=== PATIENT | male | born 1960 | race Caucasian/White ===

== ENCOUNTER → 2017-06-25 | Day surgery (SDC) | payer OTHER ==
[~2017-06-25] MED LIST: ATORVASTATIN CA40 MG PO; FENTANYL CITRATE/PF 100MCG/2 ML INJ ONE; HYOSCYAMINE SULFATE 0.5 MG/ML AMP ONE; LIDOCAINE HCL 2% LOCAL INJ 5 ML SDV VIAL INJ ONE; MIDAZOLAM HCL 2 MG/2 ML VIAL ONE; PROPOFOL IV EMULSION 10 MG/ML 50 ML VIAL ONE
--- NOTE | 2017-06-25 09:40 | Operative Report ---
DATE OF PROCEDURE: June 25, 2017 REFERRING PHYSICIAN: Dr. Joana Johnson PROCEDURE PERFORMED: Colonoscopy and polypectomy. INDICATIONS FOR COLONOSCOPY: Colorectal cancer screening. MEDICATION: Patient was done under MAC. Please see anesthesiologist's note. PROCEDURE: With the patient in the left lateral decubitus position, the flexible fiberoptic Olympus colonoscope was inserted into the rectum with ease and advanced all the way to the cecum. The scope was then withdrawn slowly. A minute polyp was hot biopsied from the cecum. One polyp was snared from the ascending colon. The transverse and descending grossly appeared to be within normal limits. Some minimal diverticulosis was noted in the sigmoid colon. Three polyps were snared and two polyps were hot biopsied from the sigmoid colon. Seven polyps were hot biopsied from the rectum. The scope was then retroflexed into the distal rectum and small internal hemorrhoids were noted, none of which was actively bleeding. The scope was then straightened out. It was subsequently withdrawn. Patient tolerated the procedure well. IMPRESSION 1. Cecal polyp, hot biopsied. 2. Ascending colon polyps, snared. 3. Diverticulosis, minimal. 4. Sigmoid colon polyps times 5, 3 snared and 2 were hot biopsied. 5. Rectal polyps times 7, hot biopsied. 6. Internal hemorrhoids, none actively bleeding. A total of 14 polyps were removed. PLAN: Follow up histology. Initiate high-fiber and low-fat diet. Initiate high-fiber supplement. Patient will need a followup colonoscopy in 1-2 years. Job#: [id number] RI cc: JOANA ELI MD
== END | disposition home or self-care (01) ==
LOC: OR 06:00
PROVIDERS: ATTEND Internal Medicine Gastroenterology
DX: Z12.11 Encounter for screening for malignant neoplasm of colon (principal); D12.2 Benign neoplasm of ascending colon; D12.5 Benign neoplasm of sigmoid colon; K62.1 Rectal polyp; K57.30 Diverticulosis of large intestine without perforation or abscess without bleeding; K64.8 Other hemorrhoids; R00.1 Bradycardia, unspecified; R03.0 Elevated blood-pressure reading, without diagnosis of hypertension; Z01.810 Encounter for preprocedural cardiovascular examination; Z68.30 Body mass index [BMI] 30.0-30.9, adult
CPT/HCPCS: 45385; 93005; J1980; J2001; J2250

== ENCOUNTER → 2019-02-23 | Day surgery (SDC) | payer OTHER ==
[~2019-02-23] MED LIST changes: +CYCLOBENZAPRINE10 MG PO; +HYOSCYAMINE 0.125 MG TAB ONE; -HYOSCYAMINE SULFATE 0.5 MG/ML AMP ONE; -LIDOCAINE HCL 2% LOCAL INJ 5 ML SDV VIAL INJ ONE; +MELOXICAM7.5 MG PO; -MIDAZOLAM HCL 2 MG/2 ML VIAL ONE; +MIDAZOLAM HCL 5MG/ML 2ML VIAL ONE; +PANTOPRAZOLE SO40 MG PO; +ULTRAM50 MG PO
--- OUTSIDE RECORDS SUMMARY | 2019-02-23 12:31 | XMS REPORT | Encounter Summary ---
Author Organization Unknown Address [address] [place] [address] Phone [phone] Care Team Providers Care Wind Energy Mechanic Name Role Phone Dr. Valencia Aragon 3 [phone] Ramiro Javed MD 3 [phone] Gumaro Moses MD 107 [phone] Reason for Visit other - see typed reason Instructions 1. Lumbago with sciatica tramadol 50 mg tablet cyclobenzaprine 10 mg tablet meloxicam 15 mg tablet 2. Right upper quadrant pain gastroenterology referral - *Please call the patient and make an appointment* PLEASE SEND BACK CONSULT NOTES TO [phone] 3. 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 Influenza vaccination declined Discussion Note: None recorded. Patient educational handouts: No information available. Plan of Care Reminders Provider Appointments Est Patient 02/21/2019 11:15AM Ramiro Collazo MD Return to Office on or around 02/21/2019 Ramiro Collazo MD Lab None recorded. Referral Gastroenterology Referral 02/07/2019 Gumaro Moses MD Procedures None recorded. Surgeries None recorded. Imaging None recorded. Medications Name Start Date atorvastatin 40 mg tablet TAKE 1 TABLET BY MOUTH EVERY DAY IN THE MORNING cyclobenzaprine 10 mg tablet Take 1 tablet as needed by oral route at bedtime for 30 days. meloxicam 15 mg tablet TAKE 1 TABLET BY MOUTH EVERY DAY NEEDED pantoprazole 40 mg tablet,delayed release TAKE 1 TABLET BY MOUTH EVERY DAY FOR 14 DAYS DIRECTED tramadol 50 mg tablet Take 1 tablet twice a day by oral route as needed for 10 days. Medications Administered None recorded. Vitals Height Weight BMI Blood Pressure 5 ft 8 in 210 lbs 31.9 kg/m2 128/74 mm[Hg] Results Lab Results Date Name Specimen Result Interpretation Description Value Range Status Address 01/31/2019 Urinalysis Complete, Reflex Culture Normal Color yellow yellow Final [facility]: [address] [facility], [place] Normal Appearance clear clear Final [facility]: [address], [place] Normal Specific Cameron 1.004 1.001-1.035 Final [facility]: [address] [facility], [place] Normal Ph 7.0 5.0-8.0 Final [facility]: [address] [facility], [place] Normal Glucose negative negative Final [facility]: [address] [facility], [place] Normal Bilirubin negative negative Final [facility]: [address] [facility], [place] Normal Ketones negative negative Final [facility]: [address] [facility], [place] Normal Occult Blood negative negative Final [facility]: [address] [facility], [place] Normal Protein negative negative Final [facility]: [address] [facility], [place] Normal Nitrite negative negative Final [facility]: [address] Normal Leukocyte Esterase negative negative Final [facility]: [address] Normal Wbc none seen /hpf < or=5 /hpf Final [facility]: [address] Normal Rbc none seen /hpf < or=2 /hpf Final [facility]: [address] Normal Squamous Epithelial Cells none seen /hpf < or=5 /hpf Final [facility]: [address] Normal Bacteria none seen /hpf none seen /hpf Final [facility]: [address] Normal Hyaline Cast none seen /lpf none seen /lpf Final [facility]: [address] [place] [address], [place] Reflexive Urine Culture no culture indicated Final [facility] [address] [facility] [facility] H Pylori Urea Breath Test, Co2 Infrared Normal Helicobacter Pylori, Urea Breath Test not detected not detected Final [facility]: [address] [place] [address], [place] Urinalysis, Dipstick Color Color light yellow [facility]: [address] [place] Color Appearance clear [facility]: [address] [place] Color Glucose negative [facility]: [address] [place] Color Bilirubin negative [facility]: [address] [place] Color Ketones negative [facility]: [address] [place] Color Specific Cameron 1.015 [facility]: [address] [place] Color Blood trace [facility]: [address] [place] Color PH 7.0 [facility]: [address] [place] Color Protein negative [facility]: [address] [place] Color Urobilinogen 0.2 [facility]: [address] [place] Color Nitrites negative [facility]: [address] [place] Color Leukocytes negative [facility]: [address] [place] Allergies Code Code System Name Reaction Severity Status Onset 838128 RxNorm Zocor Nausea Active NKDA Problems Name Status Onset Date Source Hyperlipidemia Active 09/14/2016 Polyp of Colon Active 05/31/2018 Procedures Date Name Performed by Colonoscopy Information not available 01/31/2019 US, Abdomen [facility] [place] [address] [place] [address] (Work Place) Vaccine List Vaccine Type Tdap 05/02/2014 zoster subunit 01/31/2019 Social History Tobacco Smoking Status Heavy Tobacco Smoker (1 PPD) Past Encounters 02/07/2019 Lumbago with Sciatica; Right Upper Quadrant Pain; Nonulcer Dyspepsia; Influenza Vaccination Declined Ramiro Collazo MD: [address] [place] [phone], Ph. 01/31/2019 Lumbago with Sciatica; Right Upper Quadrant Pain; Nonulcer Dyspepsia; Hyperlipidemia; Acute Low Back Pain; Immunization; Influenza Vaccination Declined; Microscopic Hematuria; Body Mass Index 30+ - Obesity Ramiro Collazo MD: [address] [place] [address], Ph. History of Present Illness Note:<div>F/u on back and abdominal pain. Pt completed medrol dose keron. Pain has improved. Intensity: 4/10. </div><div>Still complaining of bloating worse after eating and constipation. Denies nausea or melena.</div> Review of Systems:ROS as noted in the HPI Review of Systems None recorded. Physical Exam General Adult Exam (male) Reported By: Patient Constitutional: General Appearance: healthy-appearing, obese. Level of Distress: mild distress. Ambulation: ambulating normally Eyes: Lids and Conjunctivae: non-injected, no discharge Neck: Neck: supple, trachea midline Lungs: Auscultation: breath sounds normal Cardiovascular: Heart Auscultation: RRR, normal S1, normal S2, no murmurs Abdomen: Inspection and Palpation: soft, non-distended, no guarding, no rebound tenderness, no masses, no CVA tenderness, RUQ tenderness, RLQ tenderness. Liver: non-tender, no hepatomegaly. Spleen: non-tender, no splenomegaly Musculoskeletal:: Motor Strength and Tone: normal, normal tone. Joints, Bones, and Muscles: normal movement of all extremities. Extremities: no edema Neurologic: Gait and Station: normal gait. Sensation: grossly intact. Reflexes: DTRs 2+ bilaterally throughout Skin: Inspection and palpation: no rash, no lesions Back: Thoracolumbar Appearance: ; tenderness with palpation in the R side of the thoracic back and lumbar area. Positive straight leg raising test in the R side
--- OUTSIDE RECORDS SUMMARY | 2019-02-23 12:31 | XMS REPORT | Encounter Summary ---
Author Organization Unknown Address [address] [place] [address] Phone [phone] Care Team Providers Care Caul Dresser Name Role Phone Dr. Valencia Aragon 3 [phone] Ramiro Javed MD 3 [phone] Gumaro Moses MD 107 [phone] Reason for Visit Hyperlipidemia; low back pain Instructions 1. Lumbago with sciatica ketorolac 60 mg/2 mL intramuscular syringe Medrol (Darrick) 4 mg tablets in a dose pack cyclobenzaprine 10 mg tablet 2. Right upper quadrant pain US, abdomen - *Please call the patient and schedule* tramadol 50 mg tablet 3. Nonulcer dyspepsia H pylori urea breath test, co2 infrared 4. Hyperlipidemia high cholesterol: care instructions atorvastatin 40 mg tablet 5. Acute low back pain urinalysis, dipstick 6. Immunization Shingrix Adjuvant Component (PF) intramuscular suspension 7. Influenza vaccination declined 8. Microscopic hematuria urinalysis complete, reflex culture 9. Body mass index 30+ - obesity body mass index: care instructions learning about healthy weight Discussion Note: None recorded. Plan of Care Reminders Provider Appointments Est Patient 02/07/2019 10:15AM Ramiro Collazo MD Lab Urinalysis, Dipstick 01/31/2019 [facility] Urinalysis Complete, Reflex Culture 01/31/2019 [facility] H Pylori Urea Breath Test, Co2 Infrared 01/31/2019 [facility] Referral None recorded. Procedures None recorded. Surgeries None recorded. Imaging US, Abdomen 01/31/2019 [facility] [place] Medications Name Start Date atorvastatin 40 mg tablet TAKE 1 TABLET BY MOUTH EVERY DAY IN THE MORNING cyclobenzaprine 10 mg tablet Take 1 tablet as needed by oral route at bedtime for 14 days. ketorolac 60 mg/2 mL intramuscular syringe Inject 60 mg by intramuscular route. Medrol (Darrick) 4 mg tablets in a dose pack Take 1 dose pk by oral route as directed. tramadol 50 mg tablet Take 1 tablet every day by oral route as needed for 10 days. Medications Administered Name Date ketorolac 60 mg/2 mL intramuscular syringe Inject 60 mg by intramuscular route. [id number]:15:00 Vitals Height Weight BMI Blood Pressure 5 ft 8 in 212.8 lbs 32.4 kg/m2 130/76 mm[Hg] Results Lab Results Date Name Specimen Result Interpretation Description Value Range Status Address Urinalysis, Dipstick Color Color light yellow [facility]: [address] [place] Color Appearance clear [facility]: [address] [place] Color Glucose negative [facility]: [address] [place] Color Bilirubin negative [facility]: [address] [place] Color Ketones negative [facility]: [address] [place] Color Specific [place] 1.015 [facility]: [address] [place] Color Blood trace [facility]: [address] [place] Color PH 7.0 [facility]: [address] [place] Color Protein negative [facility]: [address] [place] Color Urobilinogen 0.2 [facility]: [address] [place] Color Nitrites negative [facility]: [address] [place] Color Leukocytes negative [facility]: [address] [place] Allergies Code Code System Name Reaction Severity Status Onset RxNorm Zocor Nausea Active NKDA Problems Name Status Onset Date Source Hyperlipidemia Active 09/14/2016 Polyp of Colon Active 05/31/2018 Procedures Date Name Performed by Colonoscopy Information not available 01/31/2019 US, Abdomen [facility] [place] [address] [place] [address] (Work [address]) Vaccine List Vaccine Type Tdap 05/02/2014 zoster subunit 01/31/2019 Social History Tobacco Smoking Status Heavy Tobacco Smoker (1 PPD) Past Encounters 01/31/2019 Lumbago with Sciatica; Right Upper Quadrant Pain; Nonulcer Dyspepsia; Hyperlipidemia; Acute Low Back Pain; Immunization; Influenza Vaccination Declined; Microscopic Hematuria; Body Mass Index 30+ - Obesity Ramiro Collazo MD: [address] [place] [address], Ph. History of Present Illness Note:Pt presents with complaints of low back pain. Pain started last tuesday. Pain radiates to the right leg. Intensity: 8/10. Pt denies any numbness or tingling. Pt describes the pain as achying and sharp, he states that he has difficulty putting on socks and bending, standing eases the pain a little. Pt states that he has tried otc ibuprofen but has not gotten any relief. Pt also complains of RUQ and RLQ pain. Concomitantly, bloating, worse after eating, nausea and heartburn. Denies melena, constipation, diarrhea, dysuria, hematuria or fever. Review of Systems:ROS as noted in the HPI Review of Systems None recorded. Physical Exam General Adult Exam (male) Reported By: Patient Constitutional: General Appearance: healthy-appearing, obese. Level of Distress: moderate distress. Ambulation: ambulating normally Eyes: Lids and [...]
--- OUTSIDE RECORDS SUMMARY | 2019-02-23 12:31 | XMS REPORT | Encounter Summary ---
Author Organization Unknown Address [address] [place] [address] Phone [phone] Care Team Providers Care Radiosonde Operator Name Role Phone Dr. Valencia Aragon 3 [phone] Ramiro Javed MD 3 [phone] Reason for Visit Hyperlipidemia; skin problem/rash Instructions 1. Hyperlipidemia atorvastatin 40 mg tablet lipid panel, serum CMP, serum or plasma 2. Body mass index 30+ - obesity body mass index: care instructions learning about healthy weight 3. Immunization 4. Pruritic rash triamcinolone acetonide 0.5 % topical cream 5. Skin disease screening dermatology referral 6. Polyp of colon gastroenterology referral - Please schedule & contact our patient./FX RESULTS TO [phone] Thank you. Discussion Note: None recorded. Plan of Care Reminders Provider Appointments Est Patient 08/25/2018 1:30PM Valencia Aragon MD Lab Lipid Panel, Serum 05/30/2018 [facility] CMP, Serum or Plasma 05/30/2018 [facility] Referral Dermatology Referral 05/30/2018 Hammad Hector MD Gastroenterology Referral 05/30/2018 Gumaro Moses MD Procedures None recorded. Surgeries None recorded. Imaging None recorded. Medications Name Start Date atorvastatin 40 mg tablet Take 1 tablet every day by oral route in the morning for 90 days. triamcinolone acetonide 0.5 % topical cream APPLY A THIN LAYER TO THE AFFECTED AREA(S) BY TOPICAL ROUTE 2 TIMES PER DAY Medications Administered None recorded. Vitals Height Weight BMI Blood Pressure 5 ft 8 in 215.4 lbs 32.8 kg/m2 124/80 mm[Hg] Lab Results None recorded. Allergies Code Code System Name Reaction Severity Status Onset RxNorm Zocor Nausea Active NKDA Problems Name Status Onset Date Source Hyperlipidemia Active 09/14/2016 Polyp of Colon Active 05/31/2018 Procedures Date Name Performed by 06/25/2017 Colonoscopy Information not available Vaccine List Vaccine Type Tdap 05/02/2014 Social History Smoking Status Heavy Tobacco Smoker (1 PPD) Past Encounters 05/30/2018 Hyperlipidemia; Body Mass Index 30+ - Obesity; Immunization; Pruritic Rash; Skin Disease Screening; Polyp of Colon Valencia Aragon MD: [address] [place] [address], Ph. History of Present Illness Note:58yo male presents for follow-up visit. Last visit 12/06/17. Here today for medication refill & evaluation of rash.<div>Hx of hyperlipidemia for past 6- 7yrs, dx'd by Dr Cazares. Currently on atorvastatin 40mg qd. Last lipid panel on 12/06/17 with TC 357, LDL 267, HDL 44, TG 230, AST 40, ALT 84.</div><div><span style="font-size: 14px;">Has been taking atorvastatin regularly since that visit for past </span>3mo<span style="font-size: 14px;">.</span>
</div><div><span style="font-size: 14px;">
</span></div><div>Here today for evaluation of skin rash for the past week. Itchy & scaly patches on trunk R>L, both arms & amp; both legs. Both father & paternal GF had shingles. Pt had chicken pox as child. Would like Shingrex (currently unavailable in our office).</div><div>< br></div><div>Last colonoscopy 06/25/17 at [facility] Dr Moses. Recommended repeat in 1 yr. due to polyps. Reviewed with pt.</div> Review of Systems:ROS as noted in the HPI Review of Systems Comprehensive General Adult ROS Reported By: Patient Constitutional: Constitutional: no fever Eyes: Eyes: no vision change Cardiovascular: Cardiovascular: no chest pain Respiratory: Respiratory: no cough, no wheezing, no shortness of breath Gastrointestinal: Gastrointestinal: no abdominal pain Integumentary: Skin: rash, itching, dry skin Neurologic: Neurologic: no loss of consciousness, no headaches Psychiatric: Psych: no depression, no alcohol abuse, no anxiety, no suicidal thoughts Physical Exam General Adult Exam (male) Reported By: Patient Constitutional: General Appearance: healthy-appearing, obese. Level of Distress: NAD. Ambulation: ambulating normally Psychiatric: Insight: good judgement. Mental Status: active and alert, normal mood, normal affect. Orientation: to time, to place, to person. Memory: recent memory normal, remote memory normal Eyes: Lids and Conjunctivae: non-injected, no discharge. Pupils: PERRLA. EOM: EOMI. Sclerae: non-icteric ENMT: Ears: TMs clear. Hearing: no hearing loss. Nose: nares patent, no nasal discharge. Lips, Teeth, and Gums: no mouth or lip ulcers; Enlarged taste buds. Oropharynx: moist mucous membranes Neck: Neck: supple, trachea midline. Thyroid: no enlargement, non-tender Lungs: Respiratory effort: no dyspnea. Auscultation: breath sounds normal, good air movement, no wheezing, no rales/crackles Cardiovascular: Heart Auscultation: RRR, normal S1, normal S2, no murmurs. Neck vessels: no carotid bruits. Pulses including femoral / pedal: normal throughout Abdomen: Bowel Sounds: normal. Inspection and Palpation: soft, non-distended, no tenderness, no guarding Musculoskeletal:: Motor Strength and Tone: normal, normal tone. Extremities: no edema Neurologic: Gait and Station: normal gait Skin: Inspection and palpation: no ulcer, no induration, no nodules, good turgor, no jaundice, rash, lesion, tattoo; see photos below of arms & legs. Nonspecific patches with fine scale. No vesicles
--- OUTSIDE RECORDS SUMMARY | 2019-02-23 12:31 | XMS REPORT | Encounter Summary ---
Author Organization Unknown Address [address] [place] [address] Phone [phone] Care Team Providers Care Merchandising Director Name Role Phone Dr. Valencia Aragon 3 [phone] Ramiro Javed MD 3 [phone] Gumaro Moses MD 107 [phone] Reason for Visit Hyperlipidemia; low back pain [...] Reminders Provider Appointments Est Patient 02/07/2019 10:15AM Ramrio Collazo MD Lab Urinalysis, Dipstick 01/31/2019 [facility] Urinalysis Complete, Reflex Culture 01/31/2019 [facility] H Pylori Urea Breath Test, Co2 Infrared 01/31/2019 [facility] Referral None recorded. Procedures None recorded. Surgeries None recorded. Imaging US, Abdomen 01/31/2019 [facility] [place] Medications Name Start Date atorvastatin 40 mg [...] syringe Inject 60 mg by intramuscular route. [id number]:15:00 Vitals Height Weight BMI Blood Pressure 5 ft 8 in 212.8 lbs 32.4 kg/m2 130/76 mm[Hg] Results Lab Results Date Name Specimen Result Interpretation Description Value Range Status Address Urinalysis, Dipstick Color Color light yellow [facility]: [address] [place] Color Appearance clear [facility]: [address] [place] Color Glucose negative [facility]: [address] [place] Color Bilirubin negative [facility] [address] [place] Color Ketones negative [facility]: [address] [place] Color Specific Theresa 1.015 [facility]: [address] [place] Color Blood trace [facility]: [address] [place] Color PH 7.0 [facility]: [address] [place] Color Protein negative [facility]: [address] [place] Color Urobilinogen 0.2 [facility]: [address] [place] Color Nitrites negative [facility]: [address] [place] Color Leukocytes negative [facility]: [address] [place] Allergies Code Code System Name Reaction Severity Status Onset RxNorm Zocor Nausea Active NKDA Problems Name Status Onset Date Source Hyperlipidemia Active 09/14/2016 Polyp of Colon Active 05/31/2018 Procedures Date Name Performed by Colonoscopy Information not available 01/31/2019 US, Abdomen [facility] [place] [address] [place] [address] (Work [address]) Vaccine List Vaccine Type Tdap 05/02/2014 zoster subunit 01/31/2019 Social History Tobacco Smoking Status Heavy Tobacco Smoker (1 PPD) Past Encounters 01/31/2019 Lumbago with Sciatica; Right Upper Quadrant Pain; Nonulcer Dyspepsia; Hyperlipidemia; Acute Low Back Pain; Immunization; Influenza Vaccination Declined; Microscopic Hematuria; Body Mass Index 30+ - Obesity Ramiro Collazo MD: [address] [place] [address], Ph. History of Present Illness Note:Pt presents [...]
[2019-02-23 17:15] VITALS: BP 115/81
--- NOTE | 2019-02-23 19:50 | Operative Report ---
DATE OF PROCEDURE: 02/23/2019 SURGEON: Gumaro Moses MD PROCEDURES PERFORMED: Esophagogastroduodenoscopy with biopsy and a colonoscopy with polypectomy. INDICATIONS FOR EGD: Upper abdominal pain. INDICATIONS FOR COLONOSCOPY: Surveillance colonoscopy, history of numerous colon polyps. MEDICATIONS: The patient was done under MAC. Please see anesthesiologist's note. PROCEDURE IN DETAIL: With the patient in left lateral decubitus position, flexible fiberoptic Olympus gastroscope was introduced into the esophagus under direct visualization without any difficulty. There was some patchy erythema noted in distal esophagus. The scope was then advanced with ease into the stomach. Mucosa overlying the antrum revealed some patchy erythema and low-grade to moderate edema, and biopsies were obtained, and sent to stain for H pylori. There was some prominent nodularity noted in the proximal body along the anterior wall and biopsies were obtained. The pylorus was of normal contour and shape, it was intubated with ease. The scope was advanced all the way to the second portion of the duodenum. Biopsies were obtained from the proximal second portion and duodenal bulb to rule out sprue. The scope was then withdrawn back into the stomach and retroflexed. Mucosa overlying the fundus and cardia appeared to be within normal limits. The scope was then straightened out. The stomach was decompressed. The scope was subsequently withdrawn. The patient tolerated the procedure well. IMPRESSION: 1. Distal esophagitis. 2. Gastritis, biopsied, biopsies sent to stain for Helicobacter pylori. 3. Rule out sprue. PLAN: Follow up histology. Increase Protonix to 40 mg one p.o. before meals b.i.d. The patient was then turned around after adequate lubrication of the anal canal. Flexible fiberoptic Olympus colonoscope was inserted into the rectum with ease and advanced all the way to the cecum. It was then withdrawn slowly. Mucosa overlying the cecum, ascending, transverse, and descending appeared to be within normal limits. Some diverticular disease was noted in the sigmoid colon. One polyp was hot biopsied from the sigmoid. An additional polyp was hot biopsied from the rectum. The scope was then retroflexed into the distal rectum and small internal hemorrhoids were noted, none of which was actively bleeding. The scope was then straightened out. It was subsequently withdrawn. The patient tolerated the procedure well. IMPRESSION: 1. Sigmoid colon polyp, hot biopsied. 2. Diverticulosis. 3. Rectal polyp, hot biopsied. 4. Internal hemorrhoids, none actively bleeding. PLAN: Follow up histology. Initiate high-fiber, low-fat diet. Initiate high-fiber supplement. The patient might benefit from a followup colonoscopy in 3 years. Gumaro Moses MD [facility] [place]/[facility] /[id number] cc: Amari Johnson MD
== END | disposition home or self-care (01) ==
LOC: OR 12:29
PROVIDERS: ATTEND Internal Medicine Gastroenterology
DX: K29.70 Gastritis, unspecified, without bleeding (principal); K63.5 Polyp of colon; K62.1 Rectal polyp; K20.9 Esophagitis, unspecified; K57.30 Diverticulosis of large intestine without perforation or abscess without bleeding; K64.8 Other hemorrhoids; K59.09 Other constipation; E78.00 Pure hypercholesterolemia, unspecified; R03.0 Elevated blood-pressure reading, without diagnosis of hypertension; F17.210 Nicotine dependence, cigarettes, uncomplicated; Z01.810 Encounter for preprocedural cardiovascular examination; Z68.29 Body mass index [BMI] 29.0-29.9, adult
CPT/HCPCS: 43239; 45384; 93005; J2250; J2704; J3010

== ENCOUNTER → 2020-01-22 | Day surgery (SDC) | payer OTHER ==
[2020-01-17 15:44] LABS: BASOPHILS # (AUTO) 0.1 (0.0-0.1); BASOPHILS % 0.9 % (0.0-1.0); EOSINOPHILS # (AUTO) 0.1 (0.0-0.4); HEMATOCRIT 45.3 % (38.2-49.6); HEMOGLOBIN 15.6 g/dL (14.0-18.0); LYMPHOCYTES # (AUTO) 1.6 (1.0-3.2); LYMPHOCYTES % 29.2 % (18.0-39.1); MEAN CORPUSCULAR HEMOGLOBIN 33.3 pg (28-32); MEAN CORPUSCULAR HGB CONC 34.4 g/dL (31-35); MEAN CORPUSCULAR VOLUME 96.6 fL (81-99); MONOCYTES # (AUTO) 0.4 (0.2-0.8); MONOCYTES % 7.4 % (4.4-11.3); NEUTROPHILS # (AUTO) 3.3 (2.1-6.9); NEUTROPHILS % 60.1 % (38.7-80.0); PLATELET COUNT 163 x10e3/uL (140-360); RED BLOOD COUNT 4.69 x10e6/uL (4.3-5.7); RED CELL DISTRIBUTION WIDTH 12.8 % (11.7-14.4)
--- NOTE | 2020-01-17 16:27 | Diagnostic Imaging Report ---
EXAMINATION: CHEST 2 VIEWS INDICATION: Pre-operative COMPARISON: None FINDINGS: LINES/TUBES:None LUNGS:The lungs are well-inflated. No focal consolidation or pulmonary edema. PLEURA:No pleural effusion or pneumothorax. MEDIASTINUM:The cardiomediastinal silhouette appears normal in size and shape. BONES/SOFT TISSUES:No acute osseous injury. ABDOMEN:No free air under the diaphragm. IMPRESSION: No focal pneumonia or pulmonary edema. Signed by: Nadege Boggs MD on 01/17/2020 4:24 PM
[~2020-01-22] MED LIST changes: +ACETAMINOPHEN/CODEINE 300MG - 30MG TAB ONE; +BUPIVACAINE HCL 0.5% INJ 30 ML VIAL INJ ONE; +CEFAZOLIN SOD 1 GM/NS 50ML 100 ML IV ONE; +DEXAMETHASONE SOD PHOS INJ 4 MG/ML VIAL ONE; +GLYCOPYRROLATE INJ 0.2 MG/ML VIAL ONE; +HYDROMORPHONE 1MG/1ML INJ ONE; -HYOSCYAMINE 0.125 MG TAB ONE; +KETOROLAC TROMETHAMINE 30 MG/ML VIAL ONE; +LIDOCAINE HCL 2% LOCAL INJ 5 ML SDV VIAL INJ ONE; +MIDAZOLAM HCL 2 MG/2 ML VIAL ONE; -MIDAZOLAM HCL 5MG/ML 2ML VIAL ONE; +NEOSTIGMINE 1 MG/ML 10ML VIAL ONE; +OMEPRAZOLE20 M1 PO; +ONDANSETRON HCL INJ 2MG/ML 2ML 2 MG/ML VIAL ONE; +PROPOFOL IV EMULSION 10 MG/ML 20 ML VIAL ONE; -PROPOFOL IV EMULSION 10 MG/ML 50 ML VIAL ONE; +ROCURONIUM BROMIDE 10 MG/ML 5ML VIAL IV ONE; +SEVOFLURANE INHAL SOLN 250 ML PEN BTL ONE; +SUGAMMADEX SODIUM 200 MG/2 ML VIAL IV ONE
[2020-01-22 12:35] VITALS: BP 134/79
--- NOTE | 2020-01-22 14:59 | Operative Report ---
DATE OF PROCEDURE: 01/22/2020 SURGEON: Aubrey Barron MD PREOPERATIVE DIAGNOSES: 1. Abdominal pain. 2. Incarcerated umbilical hernia. POSTOPERATIVE DIAGNOSES: 1. Abdominal pain. 2. Incarcerated umbilical hernia. PROCEDURES: 1. Diagnostic laparoscopy. 2. Repair of incarcerated umbilical hernia. 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 ANESTHESIA: General. INDICATIONS AND FINDINGS: The patient is a 59-year-old male, who presents with complaints of pain in his umbilicus as well as right lower abdomen. At Surgery, the patient was found to have no abnormalities seen with laparoscopy. The appendix appeared normal. Cecum appeared normal. Liver, gallbladder, and small bowel all appeared normal. There was no free fluid. There was an incarcerated umbilical hernia containing chronically incarcerated omentum with a fascial defect that was approximately 4 mm. TECHNIQUE: After adequate general endotracheal anesthesia, the patient in supine position, the abdomen was prepped and draped in a sterile fashion with ChloraPrep solution. A transverse incision was made inferior to the umbilicus and carried down through the subcutaneous tissue. The umbilicus was dissected free of the herniated mass. The herniated mass was then dissected free down to the fascia and freed from the fascia throughout circumference of hernia defect, which was about 4 mm. The herniated mass was about 1.5 cm containing incarcerated omentum. Once the hernia was freed from the fascia, it was then reduced beneath the fascia. A 5 mm trocar and cannula was passed through the hernia defect and pneumoperitoneum was created. Laparoscopic camera was introduced and then second 5 mm trocar and cannula were placed in the suprapubic area under direct vision. Laparoscopy revealed no free fluid. The bowel was examined. The small bowel all appeared normal with no inflammatory changes. No enlarged lymph nodes. Appendix appeared normal. Cecum appeared normal as to the right colon. Liver and gallbladder appeared normal. Instruments and cannulas were then removed, and pneumoperitoneum was evacuated. The umbilical hernia was then repaired closing the fascial defect transversely with a running suture of 0 Prolene. Hemostasis of the wound was seen to be adequate. The wound was then infiltrated with 0.5% Marcaine. The umbilicus was sutured to the fascia using 3-0 Vicryl. Subcutaneous tissue was closed with running suture of 3-0 Vicryl. Skin to all wounds was closed with running subcuticular suture of 4-0 Vicryl. Dermabond and sterile dressing were applied to each wound. The patient tolerated the procedure well. Estimated blood loss was less than 5 mL. There were no complications. All counts were correct. The patient was taken to the recovery room in satisfactory condition. MD NICHOLE Mott/[facility] /[id number] cc: Rohit Hartmann
== END | disposition home or self-care (01) ==
LOC: OR 08:16
PROVIDERS: ATTEND Surgery
DX: K42.0 Umbilical hernia with obstruction, without gangrene (principal); E78.5 Hyperlipidemia, unspecified; K21.9 Gastro-esophageal reflux disease without esophagitis; F17.210 Nicotine dependence, cigarettes, uncomplicated; Z01.810 Encounter for preprocedural cardiovascular examination; Z01.812 Encounter for preprocedural laboratory examination; Z01.818 Encounter for other preprocedural examination; Z11.59 Encounter for screening for other viral diseases; Z68.30 Body mass index [BMI] 30.0-30.9, adult
CPT/HCPCS: 36415; 49320; 49587; 71046; 85025; 93005; J0690; J1100; J1170; J1885; J2001; J2250; J2405; J2704; J2710; J3010; U0002

== ENCOUNTER → 2020-11-28 | Day surgery (SDC) | payer OTHER ==
[2020-11-25 10:17] LABS: BASOPHILS # (AUTO) 0.1 (0.0-0.1); EOSINOPHILS # (AUTO) 0.2 (0.0-0.4); EOSINOPHILS % 2.6 % (0.0-6.0); HEMATOCRIT 45.4 % (38.2-49.6); HEMOGLOBIN 15.6 g/dL (14.0-18.0); LYMPHOCYTES # (AUTO) 1.5 (1.0-3.2); LYMPHOCYTES % 24.2 % (18.0-39.1); MEAN CORPUSCULAR HEMOGLOBIN 33.3 pg (28-32); MEAN CORPUSCULAR HGB CONC 34.4 g/dL (31-35); MEAN CORPUSCULAR VOLUME 96.8 fL (81-99); MONOCYTES # (AUTO) 0.5 (0.2-0.8); MONOCYTES % 8.8 % (4.4-11.3); NEUTROPHILS # (AUTO) 3.8 (2.1-6.9); NEUTROPHILS % 62.6 % (38.7-80.0); PLATELET COUNT 152 x10e3/uL (140-360); RED BLOOD COUNT 4.69 x10e6/uL (4.3-5.7); RED CELL DISTRIBUTION WIDTH 13.5 % (11.7-14.4)
[2020-11-25 10:43] LABS: ANION GAP 15.9 mmol/L (8-16); CALCIUM 9.4 mg/dL (8.4-10.2); CREATININE, SERUM 0.8 mg/dL (0.72-1.25); POTASSIUM 3.9 mmol/L (3.5-5.1)
[~2020-11-28] MED LIST changes: -ACETAMINOPHEN/CODEINE 300MG - 30MG TAB ONE; +ATROPINE SULFATE 1 MG/ML VIAL ONE; -CEFAZOLIN SOD 1 GM/NS 50ML 100 ML IV ONE; -FENTANYL CITRATE/PF 100MCG/2 ML INJ ONE; -GLYCOPYRROLATE INJ 0.2 MG/ML VIAL ONE; +HYDROCODONE/APAP 7.5MG-325MG 1 EA TAB ONE; +HYDROGEN PEROXIDE 120 ML BTL ONE; -HYDROMORPHONE 1MG/1ML INJ ONE; +LIDOCAINE 1% W/EPINEPHRINE 20 ML VIAL ONE; -MIDAZOLAM HCL 2 MG/2 ML VIAL ONE; +POVIDONE IODINE 0.05% 0.05 % ML PO ONE; +SODIUM CHLORIDE 0.9% 50ML 100 ML ONE; -SUGAMMADEX SODIUM 200 MG/2 ML VIAL IV ONE
[2020-11-28 13:05] VITALS: BP 130/80
== END | disposition home or self-care (01) ==
LOC: OR 08:20
PROVIDERS: ATTEND Surgery
DX: K43.9 Ventral hernia without obstruction or gangrene (principal); Z01.810 Encounter for preprocedural cardiovascular examination; Z01.812 Encounter for preprocedural laboratory examination; Z20.822 Contact with and (suspected) exposure to COVID-19; E78.5 Hyperlipidemia, unspecified
CPT/HCPCS: 36415; 49560; 49568; 80048; 85025; 93005; C1781; J0690; U0002; J0461; J1100; J1885; J2001; J2405; J2710

== ENCOUNTER → 2021-09-15 | Day surgery (SDC) | payer OTHER ==
[~2021-09-15] MED LIST changes: -ATROPINE SULFATE 1 MG/ML VIAL ONE; -BUPIVACAINE HCL 0.5% INJ 30 ML VIAL INJ ONE; -DEXAMETHASONE SOD PHOS INJ 4 MG/ML VIAL ONE; +DICYCLOMINE HCL20 MG PO; +FENTANYL CITRATE/PF 100MCG/2 ML INJ ONE; +FLOMAX0.4 MG PO; +GLUCAGON FOR INJ 1 MG VIAL ONE; -HYDROCODONE/APAP 7.5MG-325MG 1 EA TAB ONE; -HYDROGEN PEROXIDE 120 ML BTL ONE; -KETOROLAC TROMETHAMINE 30 MG/ML VIAL ONE; -LIDOCAINE 1% W/EPINEPHRINE 20 ML VIAL ONE; +METOCLOPRAMIDE HCL 10 MG/2ML VIAL ONE; +MIDAZOLAM HCL 2 MG/2 ML VIAL ONE; -NEOSTIGMINE 1 MG/ML 10ML VIAL ONE; -ONDANSETRON HCL INJ 2MG/ML 2ML 2 MG/ML VIAL ONE; -POVIDONE IODINE 0.05% 0.05 % ML PO ONE; -ROCURONIUM BROMIDE 10 MG/ML 5ML VIAL IV ONE; -SEVOFLURANE INHAL SOLN 250 ML PEN BTL ONE; -SODIUM CHLORIDE 0.9% 50ML 100 ML ONE; +TIZANIDINE HCL4 M1 PO
[2021-09-15 15:35] VITALS: BP 109/79
[2021-09-15 16:07] LABS: WBC,FECAL (FECAL LACTOFERRIN) POSITIVE (NEGATIVE)
[2021-09-16 10:32] LABS: C DIFFICILE TOXIN A&B AMP PROB NEGATIVE (NEGATIVE)
== END | disposition home or self-care (01) ==
LOC: OR 11:48
PROVIDERS: ATTEND Internal Medicine Gastroenterology
DX: K21.9 Gastro-esophageal reflux disease without esophagitis (principal); K63.5 Polyp of colon; K29.70 Gastritis, unspecified, without bleeding; K52.9 Noninfective gastroenteritis and colitis, unspecified; K20.90 Esophagitis, unspecified without bleeding; K31.89 Other diseases of stomach and duodenum; K59.00 Constipation, unspecified; K57.30 Diverticulosis of large intestine without perforation or abscess without bleeding; K28.9 Gastrojejunal ulcer, unspecified as acute or chronic, without hemorrhage or perforation; K62.89 Other specified diseases of anus and rectum; K64.8 Other hemorrhoids; Z71.3 Dietary counseling and surveillance; K76.9 Liver disease, unspecified; M54.9 Dorsalgia, unspecified; E78.5 Hyperlipidemia, unspecified; F17.290 Nicotine dependence, other tobacco product, uncomplicated; Z88.8 Allergy status to other drugs, medicaments and biological substances; Z01.810 Encounter for preprocedural cardiovascular examination; Z01.812 Encounter for preprocedural laboratory examination; Z20.822 Contact with and (suspected) exposure to COVID-19; Z79.899 Other long term (current) drug therapy; Z68.29 Body mass index [BMI] 29.0-29.9, adult; Z86.16 Personal history of COVID-19
CPT/HCPCS: 43239; 45380; 83630; 83993; 87045; 87177; 87328; 87493; 93005; C9113; J1610; J2001; J2250; J2704; J2765; J3010; U0002

== ENCOUNTER → 2024-12-14 | Day surgery (SDC) | payer BC, OTHER ==
[~2024-12-14] MED LIST changes: +ACETAMINOPHEN-1 EAC4 PO; +B12 ACTIVE1000 MCG PO; +DEXAMETHASONE SOD PHOS INJ 4 MG/ML SDV ONE; +FAMOTIDINE 20 MG/2 ML VIAL IV ONE; -FENTANYL CITRATE/PF 100MCG/2 ML INJ ONE; +GLYCOPYRROLATE INJ 0.2 MG/ML VIAL ONE; +HYOSCYAMINE SULFATE 0.5 MG/ML INJ ONE; +LIPIDSAVE DR 11 EACH PO; -METOCLOPRAMIDE HCL 10 MG/2ML VIAL ONE; -MIDAZOLAM HCL 2 MG/2 ML VIAL ONE; +OMEGA 3 1,0001 EACH PO; +PROPOFOL IV EMULSION 50 ML IV ONE
[2024-12-14 09:39] VITALS: TEMP 97.6
[2024-12-14] MEDS: LACTATED RINGER'S 1,000 ML ONE (09:49)
[2024-12-14 09:50] VITALS: BP 119/85; PULSE 55; RESP 15; O2SAT 98
== END | disposition home or self-care (01) ==
LOC: OR 06:37
PROVIDERS: ATTEND Internal Medicine Gastroenterology
DX: K63.5 Polyp of colon (principal); K62.1 Rectal polyp; K57.30 Diverticulosis of large intestine without perforation or abscess without bleeding; K64.8 Other hemorrhoids; K85.20 Alcohol induced acute pancreatitis without necrosis or infection; K21.9 Gastro-esophageal reflux disease without esophagitis; E78.00 Pure hypercholesterolemia, unspecified; N40.0 Benign prostatic hyperplasia without lower urinary tract symptoms; F10.90 Alcohol use, unspecified, uncomplicated; G47.33 Obstructive sleep apnea (adult) (pediatric); Z87.442 Personal history of urinary calculi; Z86.16 Personal history of COVID-19; Z80.0 Family history of malignant neoplasm of digestive organs; Z88.8 Allergy status to other drugs, medicaments and biological substances; Z79.899 Other long term (current) drug therapy; Z01.810 Encounter for preprocedural cardiovascular examination
CPT/HCPCS: 45378; 45380; 45385; 93005; J1100; J1308; J1610; J1980; J2003